=== PATIENT | male | born 1960 | race Caucasian/White ===

== ENCOUNTER → 2017-07-06 | Outpatient (CLI) | payer OTHER ==
--- NOTE | 2017-07-06 19:59 | US ---
EXAMINATION TYPE: US venous doppler duplex LE RT DATE OF EXAM: 07/06/2017 7:39 PM COMPARISON: NONE CLINICAL HISTORY: R60.0 localized edema right lg. SIDE PERFORMED: TECHNIQUE: The lower extremity deep venous system is examined utilizing real time linear array sonog latrice with graded compression, doppler sonography and color-flow sonography. VESSELS IMAGED: External Iliac Vein (EIV) Common Femoral Vein Deep Femoral Vein Greater Saphenous Vein * Femoral Vein Popliteal Vein Small Saphenous Vein * Proximal Calf Veins (* superficial vessels) Right Leg: Negative for DVT Grayscale, color doppler, spectral doppler imaging performed of the deep veins of the right lower ex tremity. There is normal flow, compressibility, vascular waveforms. Subcutaneous edema at level of calf is noted towards the end of study. IMPRESSION: No ultrasound evidence for acute DVT in the right lower extremity.
== END | disposition home or self-care (01) ==
LOC: RADUSMAIN 17:19
PROVIDERS: ATTEND Internal Medicine
DX: R60.0 Localized edema (principal); I87.301 Chronic venous hypertension (idiopathic) without complications of right lower extremity

== ENCOUNTER 2019-12-11 21:58 | Emergency (ER) | payer BC ==
[2019-12-11 22:16] VITALS: BP 127/90
[2019-12-11 22:59] LABS: Appearance,Urine Clear (Clear); Bilirubin,Urine Negative (Negative); Blood,Urine Small (Negative); Color,Urine Yellow; Glucose,Urine (UA) 4+ (Negative); Ketones,Urine Trace (Negative); Leukocyte Esterase,Urine Negative (Negative); Mucus,Urine Rare /hpf; Nitrite,Urine Negative (Negative); PH, Urine 5.5 (5.0-8.0); Protein,Urine 2+ (Negative); RBC,Urine 2 /hpf (0-5); Specific Gravity,Urine 1.023 (1.001-1.035); Squamous Epithelial Cell,Urine 1 /hpf (0-4); Urobilinogen,Urine <2.0 mg/dL (<2.0); WBC,Urine 1 /hpf (0-5)
[2019-12-12] MEDS ORDERED: CEPHALEXIN 500MG STARTER PACK 4 CAP BTL PO STA (00:04)
[2019-12-12] MEDS ORDERED: SULFAMETHOX-TMP 800-160MG 1 EACH TAB PO STA (00:04)
[2019-12-12] MEDS ORDERED: CEPHALEXIN 500 MG CAP PO STA (00:04)
[2019-12-12] MEDS ORDERED: SULFAMETH-TMP DS STARTER PACK 2 TAB BTL PO STA (00:04)
--- NOTE | 2019-12-12 00:06 | ED ---
Recheck HPI - General Chief Complaint: Urogenital Stated Complaint: Fever,Urogenital Time Seen by Provider: 12/11/19 23:09 Source: patient, RN notes reviewed, old records reviewed Mode of arrival: ambulatory Limitations: no limitations - History of Present Illness Initial Comments: This is a 59-year-old male DF for evaluation presents today for evaluation of some blood in the urine and hematuria urge, patient also having significant difficulty with his lower extremity's. Significant left great toe swelling and erythema erythema that is just up the leg no fevers. Patient was seen by primary care started on supplemental or herbal therapies patient states his symptoms are worsening did have a fever today as well. Patient has had cellulase of both lower extremities before this is not the worst of his been MD Complaint: wound re-check -: hour(s) Returns Today for: Called Because of Abnormal Lab/Test (Patient is safe for evaluation running swelling and redness), persistent/worsening pain related to initial visit Symptoms Since Prior Visit: worsening pain, worsening swelling, worsening redness, fever Context: planned re-check Associated Symptoms: fever, chills - Related Data Previous Rx's Medication Instructions Recorded Cephalexin [Keflex] 500 mg PO Q6HR #40 cap 12/12/19 Sulfamethox-Tmp 800-160Mg [Bactrim 2 tab PO BID #40 tab 12/12/19 DS 800-160 mg] Allergies Allergy/AdvReac Type Severity Reaction Status Date / Time No Known Allergies Allergy Verified 12/11/19 22:16 Review of Systems ROS Statement: Those systems with pertinent positive or pertinent negative responses have been documented in the HPI. ROS Other: All systems not noted in ROS Statement are negative. Past Medical History Past Medical History: Diabetes Mellitus, Hypertension History of Any Multi-Drug Resistant Organisms: None Reported Past Surgical History: Appendectomy Past Psychological History: No Psychological Hx Reported Smoking Status: Former smoker Past Alcohol Use History: Rare Past Drug Use History: Marijuana General Exam - General Exam Comments Initial Comments: Significant lower extremity "70 great toe cellulitis and swelling streaking up the leg Limitations: no limitations General appearance: alert, in no apparent distress Head exam: Present: atraumatic, normocephalic, normal inspection Eye exam: Present: normal appearance, PERRL, EOMI. Absent: scleral icterus, conjunctival injection, periorbital swelling ENT exam: Present: normal exam, mucous membranes moist Neck exam: Present: normal inspection. Absent: tenderness, meningismus, lymphadenopathy Respiratory exam: Present: normal lung sounds bilaterally. Absent: respiratory distress, wheezes, rales, rhonchi, stridor Cardiovascular Exam: Present: regular rate, normal rhythm, normal heart sounds. Absent: systolic murmur, diastolic murmur, rubs, gallop, clicks GI/Abdominal exam: Present: soft, normal bowel sounds. Absent: distended, tenderness, guarding, rebound, rigid Extremities exam: Present: normal inspection, full ROM, normal capillary refill. Absent: tenderness, pedal edema, joint swelling, calf tenderness Back exam: Present: normal inspection Neurological exam: Present: alert, oriented X3, CN II-XII intact Psychiatric exam: Present: normal affect, normal mood Skin exam: Present: warm, dry, intact, normal color. Absent: rash Course Vital Signs 12/11/19 12/12/19 22:07 00:27 Temperature 100.2 F H 99.0 F Pulse Rate 105 H 101 H Respiratory 20 18 Rate Blood Pressure 127/90 127/90 O2 Sat by Pulse 96 96 Oximetry - Reevaluation(s) Reevaluation #1: Medical record is reviewed Patient having significant left lower extremity pain, left toe pain Medical Decision Making - Medical Decision Making 59 male DF for evaluation patient presents today for evaluation of left lower extremity great toe pain swelling and cellulitis - Lab Data Lab Results 12/11/19 Range/Units 22:39 Urine Color Yellow Urine Appearance Clear (Clear) Urine pH 5.5 (5.0-8.0) Ur Specific [place] 1.023 (1.001-1.035) Urine Protein 2+ H (Negative) Urine Glucose (UA) 4+ H (Negative) Urine Ketones Trace H (Negative) Urine Blood Small H (Negative) Urine Nitrite Negative (Negative) Urine Bilirubin Negative (Negative) Urine Urobilinogen <2.0 (<2.0) mg/dL Ur Leukocyte Esterase Negative (Negative) Urine RBC 2 (0-5) /hpf Urine WBC 1 (0-5) /hpf Ur Squamous Epith Cells 1 (0-4) /hpf Urine Mucus Rare H (None) /hpf Disposition Clinical Impression: Infected abrasion of great toe of left foot, Diabetic ulcer of left great toe Disposition: HOME SELF-CARE Condition: Good Instructions (If sedation given, give patient instructions): Cellulitis (ED), Diabetic Foot Ulcers (ED) Prescriptions: Sulfamethox-Tmp 800-160Mg [Bactrim DS 800-160 mg] 2 tab PO BID #40 tab Cephalexin [Keflex] 500 mg PO Q6HR #40 cap Is patient prescribed a controlled substance at d/c from ED?: No Referrals: Bolivar Alvarado MD [Primary Care Provider] - 1-2 days
[2019-12-12 00:29] VITALS: PULSE 101; RESP 18; TEMP 99
== END 2019-12-12 00:29 | disposition home or self-care (01) ==
LOC: EC 21:58
DX: E11.621 Type 2 diabetes mellitus with foot ulcer (principal); L97.529 Non-pressure chronic ulcer of other part of left foot with unspecified severity; S90.412A Abrasion, left great toe, initial encounter; L08.9 Local infection of the skin and subcutaneous tissue, unspecified; Z87.891 Personal history of nicotine dependence; X58.XXXA Exposure to other specified factors, initial encounter
CPT/HCPCS: 81001; 99284

== ENCOUNTER → 2020-10-08 | Outpatient (CLI) | payer BC ==
--- NOTE | 2020-10-09 07:12 | US ---
EXAMINATION TYPE: US kidneys/renal and bladder DATE OF EXAM: 10/08/2020 COMPARISON: NONE CLINICAL HISTORY: R80.9 Positive microalbumin. abn labs EXAM MEASUREMENTS: Right Kidney: 13.4 x 5.8 x 6.3 cm Left Kidney: 13.2 x 5.2 x 6.2 cm Right Kidney: lower pole cystic lesion = 1.2 x 1.1 x 1.0 cm Left Kidney: lower pole cystic lesion = 0.9 x 0.9 x 0.8 cm Bladder: anechoic, mildly distended Bilateral Jets not seen There is no evidence for hydronephrosis at this point in time. No nephrolithiasis is seen. No solid masses are identified. The urinary bladder is anechoic. Bilateral ureteral jets are seen. IMPRESSION: Renal cystic changes noted.
== END | disposition home or self-care (01) ==
LOC: RADUSWWP 16:14
PROVIDERS: ATTEND Family Medicine
DX: N28.1 Cyst of kidney, acquired (principal)
CPT/HCPCS: 76770

== ENCOUNTER → 2023-03-17 | Outpatient (CLI) | payer MEDICARE ==
--- NOTE | 2023-03-17 09:44 | US ---
EXAMINATION TYPE: US Aorta Screening DATE OF EXAM: 03/17/2023 COMPARISON: NONE CLINICAL INDICATION: Male, 63 years old with history of Z13.6 SCREENING FOR CARDIOVASCULAR; AAA scree neelima. Prior smoker. Patient's father had AAA. TECHNIQUE: Multiple sonographic images of the abdominal aorta are obtained. FINDINGS: EXAM MEASUREMENTS: Abdominal Aorta: Proximal: 2.9 x 2.6 cm Mid: 2.6 x 2.8 cm Distal: 2.2 x 2.3 cm Bifurcation: Obscured. 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 Proximal and mid segments appear ectatic. Unable to visuali ze iliacs. IMPRESSION: Ectasia of the proximal and mid portions of the abdominal aorta without aneurysm. The iliac arteries are obscured by overlying bowel gas.
== END | disposition home or self-care (01) ==
LOC: RADUSWWP 09:09
PROVIDERS: ATTEND Family Medicine
DX: Z13.6 Encounter for screening for cardiovascular disorders (principal); I77.811 Abdominal aortic ectasia; Z87.891 Personal history of nicotine dependence
CPT/HCPCS: 76706